=== PATIENT | female | born 1940 | race Caucasian/White ===

== ENCOUNTER 2018-11-02 15:23 | Emergency (ER) | payer MEDICARE, OTHER ==
[~2018-11-02] VITALS: Ht 157.5 cm; Wt 95.0 kg
[~2018-11-02 15:23] MED LIST: ESOM40CA; TRAM50TA
[2018-11-02 15:39] VITALS: BP 146/75; PULSE 64; RESP 17; Ht 157.5 cm; Wt 95.0 kg
[2018-11-02] MEDS ORDERED: FER325 PO (17:08)
[2018-11-02] MEDS ORDERED: MECL-77 PO (17:09)
[2018-11-02] MEDS ORDERED: IBUP-1542 PO (17:09)
[2018-11-02] MEDS ORDERED: ATOR40TA68 PO (17:10)
[2018-11-02] MEDS ORDERED: ADV25050 INHALATION (17:10)
[2018-11-02] MEDS ORDERED: [UNRECOGNIZED DRUG - CODE] PO (17:10)
[2018-11-02] MEDS ORDERED: ESOM40CA PO (17:11)
[2018-11-02] MEDS ORDERED: TOLT4CAP13 PO (17:11)
[2018-11-02] MEDS ORDERED: CYCL1DRO BOTH EYES (17:12)
[2018-11-02] MEDS ORDERED: SITA1TAB5 PO (17:12)
[2018-11-02] MEDS ORDERED: CHOL200056 PO (17:13)
--- NOTE | 2018-11-02 17:15 | ERD ---
ER Documentation Chief Complaint Chief Complaint x 3 days of L lower back pain radiating down LLE; no relief with [place] HPI 78-year-old female with a history of chronic knee pain presenting with 3 days of worsening left lower back pain with associated pain radiating down her left lower extremity. She usually takes tramadol for knee pain, which has not been helping. Her symptoms are worsening. No alleviating or exacerbating factors. The pain is severe, intermittent, radiating down the back of her left leg from her buttocks. She has a remote history of sciatica in the past but has not had it for many years. No change in urinary or bowel habits. No numbness or tingling in the extremity. No weakness. She is able to walk normally but some what limited by the pain. She has a appointment with her primary care doctor in less than 1 week but she cannot wait that long. She had one leftover [place] from years ago that she took but it did not help. ROS All systems reviewed and are negative except as per history of present illness. Medications Home Meds Active Scripts Naloxone HCl nasal spray (Narcan 4 mg/0.1 mL nasal) 4 Mg [place], 4 MG NS .Q2-3MIN for OPIOID OVERDOSE, #2 SPRAY 0 Refills [place] 0.1 mL into one nostril. Repeat with second device into other nostril after 2-3 minutes if no or minimal response Prov:LEONILA MELENDREZ MD 11/02/18 Hydrocodone/Acetaminophen ([place] 5-325 Tablet) 1 Each Tablet, 1 TAB PO Q6H PRN for PAIN, #10 TAB Prov:LEONILA MELENDREZ MD 11/02/18 Reported Medications Olopatadine HCl (Olopatadine HCl) 2.5 Ml Drops, 2.5 ML OP DAILY, BOTTLE 11/02/18 Tramadol Hcl* (Ultram*) 50 Mg Tablet, 50 MG PO DAILY PRN for PAIN, TAB 11/02/18 Celecoxib* (Celebrex*) 100 Mg Capsule, 100 MG PO BID PRN for NEEDED, CAP 11/02/18 Betamethasone Dipropionate* (Betamethasone Dipropionate*) 0.05% - 15 Gm Oint, 1 APPLIC TOP BID, TUB APPLY TO: 11/02/18 Icosapent Ethyl (VASCEPA) 1 Gm Capsule, 2 GM PO BID, CAP 11/02/18 Cholecalciferol (Vitamin D3) (Vitamin D-3) 2,000 Unit Tablet, 2000 UNIT PO DAILY, TAB 11/02/18 Sitagliptin Phos/Metformin HCl (Janumet 50-1,000 mg Tablet) 1 Each Tablet, 1 EACH PO BID, TAB 11/02/18 Cyclosporine (RESTASIS) 1 Each Drope[place], 1 DROP BOTH EYES Q12, #1 BOX 11/02/18 Esomeprazole Mag Trihydrate (Nexium) 40 Mg Capsule.dr, 40 MG PO DAILY, #30 CAP 11/02/18 Tolterodine Tartrate* (Tolterodine Tartrate* ER) 4 Mg Cap.er.24h, 4 MG PO DAILY, #30 CAP 11/02/18 Salmeterol Xinaf/Fluticasone* (Advair*) 250-50 Diskus Inhaler, 1 INH INHALATION BID, #1 INHALER 11/02/18 Telmisartan (Micardis) 80 Mg Tablet, 80 MG PO DAILY, TAB 11/02/18 Atorvastatin* (Atorvastatin*) 40 Mg Tablet, 40 MG PO QHS, #30 TAB 11/02/18 Ibuprofen* (Ibuprofen*) 600 Mg Tablet, 600 MG PO BID, TAB 11/02/18 Meclizine Hcl* (Meclizine Hcl*) 25 Mg Tablet, 25 MG PO DAILY PRN for DIZZINESS, TAB 11/02/18 Ferrous Sulfate* (Ferrous Sulfate*) 325 Mg [place], 325 MG PO BID, TAB 11/02/18 Discontinued Reported Medications Tramadol Hcl* (Ultram*) 50 Mg Tablet 09/21/10 Esomeprazole Mag Trihydrate (Nexium) 40 Mg Capsule. 09/21/10 Allergies Allergies: Coded Allergies: No Known Allergies (Verified Allergy, Mild, 11/02/18) PMhx/Soc History of Surgery: Yes (GALLBLADDER, APPENDECTOMY,THROAT, bilateral knee ) Anesthesia Reaction: No Hx Neurological Disorder: No Hx Respiratory Disorders: No Hx Cardiac Disorders: Yes (Hypertension) Hx Psychiatric Problems: No Hx Miscellaneous Medical Probl: Yes (Gastritis) Hx Alcohol Use: No Hx Substance Use: No Hx Tobacco Use: No FmHx Family History: No diabetes Physical Exam Vitals Vital Signs Date Temp Pulse Resp B/P (MAP) Pulse Ox O2 O2 Flow FiO2 Time Delivery Rate 11/02/18 97.8 64 17 146/75 98 15:39 (98) Physical Exam Const: No acute distress, laying in bed, nontoxic Head: Atraumatic Eyes: Normal Conjunctiva ENT: Normal External Ears, Nose and Mouth. Neck: Full range of motion. No meningismus. Resp: Clear to auscultation bilaterally Cardio: Regular rate and rhythm, no murmurs. 2+ DP and PT pulses bilaterally. Abd: Soft, non tender, non distended. Normal bowel sounds Skin: No petechiae or rashes Back: No midline or flank tenderness. Left lumbar paraspinal muscle and buttock tenderness. Positive straight leg raise on the left. Ext: No cyanosis, or edema. No calf tenderness Neur: Awake and alert, normal speech, strength and sensations intact in all 4 extremities. Psych: Normal Mood and Affect Results 24 hrs Current Medications Medications Dose Sig/Andrew Start Time Status Last (Trade) Ordered Route PRN Stop Time Admin Dose Reason Admin Morphine 6 mg ONCE ONCE 11/02/18 DC 11/02/18 Sulfate IM 17:30 17:10 (morphine) 11/02/18 17:31 120 mg STK-MED 11/02/18 DC Acetaminophen ONCE .ROUTE 17:57 (Tylenol 11/02/18 17:58 Supp) Procedures/MDM Initial Nursing notes reviewed. Previous Medical Records requested via the Electronic Health Record. EMERGENCY DEPARTMENT COURSE / MEDICAL DECISION MAKING: Patient presents with left lower back pain, acute in onset and atraumatic with associated sciatica. Vitals are stable. Unremarkable. The patient is neurovascularly intact on exam with unremarkable vitals. I have a low suspicion for spinal tumor as the patient has no history of cancer, night sweats, or weight loss. I have a low suspicion for bone or disc infection, cauda equina, cord compression, acute spinal fracture, infiltrative, or infectious etiology. Patient's musculoskeletal symptoms have stabilized while they have been evaluated in the department and are appropriate for outpatient work up. I advised follow up with their PCP in 1-2 days. Return precautions were discussed in detail. I recommended rest and analgesics. Since she has failed [id number] analgesics and tramadol, I did give her a prescription for [place] until she is able to see her primary doctor. Prescription for Narcan given as well. Patient's blood pressure was elevated (>120/80) but appears stable without evidence of hypertensive emergency or urgency. The patient was counseled about the risks of hypertension and urged to pursue outpatient monitoring and therapy within a week with their primary care physician. Departure Diagnosis: Primary Impression: Left-sided low back pain with left-sided sciatica Chronicity: acute Qualified Codes: M54.42 - Lumbago with sciatica, left side Condition: Stable LEONILA MELENDREZ MD Nov 02, 2018 17:15
[2018-11-02] MEDS ORDERED: ICOS1CAP PO (17:16)
[2018-11-02] MEDS ORDERED: BTM.05O15 TOP (17:18)
[2018-11-02] MEDS ORDERED: TRAM50TA PO (17:19)
[2018-11-02] MEDS ORDERED: CELE100C PO (17:19)
[2018-11-02] MEDS ORDERED: OLOP2.5D6 OP (17:20)
[2018-11-02] MEDS ORDERED: HYDR-4011 PO (17:26)
[2018-11-02] MEDS ORDERED: NALO4SPR NS (17:26)
[2018-11-02] MEDS ORDERED: morphine 10 MG INJ IM ONE (17:30)
[2018-11-02] MEDS ORDERED: ACETAMINOPHEN 120 MG SUPP ONE (17:57)
== END 2018-11-02 20:32 | disposition home or self-care (01) ==
LOC: E/R 15:23
DX: M54.42 Lumbago with sciatica, left side (principal); I10 Essential (primary) hypertension; Z79.84 Long term (current) use of oral hypoglycemic drugs
CPT/HCPCS: 96372; 99284; J2270